=== PATIENT | female | born 1985 | race Caucasian/White ===

== ENCOUNTER 2025-02-24 10:57 | Outpatient (CLI) | payer OTHER ==
[2025-02-24 11:53] LABS: #Basophils 0.1 thou/uL (0.0-0.2); #Eosinophils 0.1 thou/uL (0.0-0.7); #Lymphocytes 2.1 thou/uL (1.20-3.40); #Monocytes 0.4 thou/uL (0.11-0.59); #Neutrophils 4.2 thou/uL (1.40-6.50); %Basophils 1.1 % (0.0-1.0); %Eosinophils 1.6 % (0.0-10.0); %Lymphocytes 30.2 % (21.0-51.0); %Monocytes 5.7 % (0.0-10.0); %Neutrophils 61.4 % (42.0-75.0); Mean Corpuscular HGB CONC 31.8 g/dL (32.0-36.0); Mean Corpuscular Hemoglobin 28.1 pg (27.0-31.0); Mean Corpuscular Volume 88.6 fl (78.0-98.0); Mean Platelet Volume 7.9 fL (7.4-10.4); Platelet Count 190 10x3/uL (130-400); RBC Distribution Width 11.2 % (11.5-14.5); Red Blood Cell (RBC) Count 4.63 mill/uL (4.20-5.40); White Blood Cell (WBC) Count 6.8 10x3/uL (4.8-10.8)
[2025-02-24 12:03] LABS: ALT (SGPT) 12 U/L (Less than 34); AST (SGOT) 17 U/L (11-34); Albumin 4.1 g/dL (3.1-4.5); Alkaline Phosphatase 60 U/L (40-110); Anion Gap 12 mmol/L (10-20); BUN (Urea Nitrogen) 13 mg/dL (7.0-18.7); Bilirubin, Total 0.3 mg/dL (0.3-1.2); Calc. Creatinine Clearance 0 mL/min (70-130); Calcium 8.9 mg/dL (7.8-10.44); Carbon Dioxide 24 mmol/L (22-29); Cardiac Risk 5.3 (Less than 4.5); Chloride 107 mmol/L (98-107); Cholesterol 253 mg/dl (< 200 Desired); Estimated GFR 87; Globulin 2.6 g/dL (2.4-3.5); Glucose 87 mg/dL (70-105); HDL Cholesterol 48 mg/dL (>60 Neg Risk); LDL Cholesterol, Calculated 189 mg/dL; Protein, Total 6.7 g/dL (6.0-8.3); Sodium 139 mmol/L (136-145); Triglycerides 78 mg/dL (Less than 150)
[2025-02-24 12:05] LABS: Bilirubin Negative (Negative); Blood, Urine Negative (Negative); Clarity Clear (Clear); Glucose, Urine (Dipstick) Negative (Negative); Ketone, Urine Negative (Negative); Leukocyte Trace (Negative); Nitrite Negative (Negative); Protein, Urine (Dipstick) Negative (Neg-Trace); Urobilinogen 0.2 mg/dL (Less than 2)
[2025-02-24 12:33] LABS: Thyroid Stimulating Hormone 3.0757 uIU/mL (0.35-4.94)
[2025-02-24 18:10] LABS: Hemoglobin A1c 5.2 % (4.0-6.0)
[2025-02-24 18:22] LABS: Vitamin D, 25 Hydroxy 29.2 ng/ml (> 30.0)
== END 2025-02-24 10:58 | disposition home or self-care (01) ==
LOC: NAV LAB 10:57
PROVIDERS: ATTEND Pathology Anatomic Pathology & Clinical Pathology
DX: Z00.00 Encounter for general adult medical examination without abnormal findings (principal)
CPT/HCPCS: 80050; 80061; 81003; 82306; 83036

== ENCOUNTER 2025-10-14 12:48 | Outpatient (CLI) | payer OTHER ==
[2025-10-14 14:57] LABS: ALT (SGPT) 21 U/L (Less than 34); AST (SGOT) 28 U/L (11-34); Albumin 4.6 g/dL (3.1-4.5); Alkaline Phosphatase 64 U/L (40-110); Anion Gap 14 mmol/L (10-20); BUN (Urea Nitrogen) 10 mg/dL (7.0-18.7); Bilirubin, Total 0.4 mg/dL (0.3-1.2); Calc. Creatinine Clearance 0 mL/min (70-130); Calcium 9.2 mg/dL (7.8-10.44); Carbon Dioxide 26 mmol/L (22-29); Cardiac Risk 4.4 (Less than 4.5); Chloride 105 mmol/L (98-107); Cholesterol 248 mg/dl (< 200 Desired); Globulin 2.8 g/dL (2.4-3.5); Glucose 112 mg/dL (70-105); HDL Cholesterol 57 mg/dL (>60 Neg Risk); LDL Cholesterol, Calculated 177 mg/dL; Potassium 4.0 mmol/L (3.5-5.1); Sodium 141 mmol/L (136-145); Triglycerides 70 mg/dL (Less than 150)
[2025-10-14 15:27] LABS: Hematocrit 42.4 % (36.0-47.0); Hemoglobin 14.4 g/dL (12.0-16.0); Mean Corpuscular Hemoglobin 29.3 pg (27.0-31.0); Mean Corpuscular Volume 86.3 fl (78.0-98.0); Platelet Count 215 10x3/uL (130-400); Red Blood Cell (RBC) Count 4.91 mill/uL (4.20-5.40); White Blood Cell (WBC) Count 6.1 10x3/uL (4.8-10.8)
[2025-10-14 15:41] LABS: MDiff Complete? YES
== END 2025-10-14 12:49 | disposition home or self-care (01) ==
LOC: NAV LAB 12:48
PROVIDERS: ATTEND Pathology Anatomic Pathology & Clinical Pathology
DX: Z00.00 Encounter for general adult medical examination without abnormal findings (principal)
CPT/HCPCS: 80050; 80061